=== PATIENT | female | born 1985 | race Two or more races ===

== ENCOUNTER → 2017-08-03 | Outpatient (CLI) | payer OTHER | END | disposition home or self-care (01) | LOC: US 08:04 | DX: N63.20 Unspecified lump in the left breast, unspecified quadrant (principal) | CPT/HCPCS: 19081; 76942; 77065; 88305; 88361; C1713 ==

== ENCOUNTER 2017-10-12 06:33 | Day surgery (SDC) | payer OTHER ==
[~2017-10-12 06:33] MED LIST: NEOMY/BACITR/POLYMYXIN OINT PACKET. TP
[2017-10-12 06:52] LABS: NEG OBC UR NEG; POS OBC UR POS; U PREG PATIENT NEGATIVE (NEG)
[2017-10-12] MEDS ORDERED: PROCHLORPERAZINE 10 MG/2 ML VIAL. IV (07:00)
[2017-10-12] MEDS ORDERED: LIDOCAINE 1% PF 2 ML VIAL. ID (07:00)
[2017-10-12] MEDS ORDERED: ONDANSETRON PF 4 MG/2 ML VIAL. IV (07:00)
[2017-10-12] MEDS ORDERED: MORPHINE SULFATE 2 MG/ML DISP.SYRIN. IV (07:00)
[2017-10-12] MEDS ORDERED: fentaNYL PF VIAL 100 MCG/2 ML VIAL IV (07:00)
[2017-10-12] MEDS: IV RINGERS,LACTATED 1000ML 1,000 ML IV (07:10)
[2017-10-12] MEDS ORDERED: MIDAZOLAM HCL/PF 2 MG/2 ML VIAL. (07:53)
[2017-10-12] MEDS ORDERED: ceFAZolin 2GM PREMIX 2 GM/50 ML BAG IV (08:00)
[2017-10-12] MEDS ORDERED: fentaNYL PF VIAL 100 MCG/2 ML VIAL (08:03)
[2017-10-12] MEDS: BUPIVACAINE 0.5% 50 ML VIAL. (08:05)
[2017-10-12] MEDS: BUPIVAC MPF-EPI 0.5%-1:200000 30 ML VIAL. INJ (08:05)
[2017-10-12] MEDS: HEPARIN SODIUM 5,000 UNIT in IV NORMAL SALINE 500ML BAG 500 ML IRR (08:05)
[2017-10-12] MEDS ORDERED: LIDOCAINE 2% PF Vial for OR 5 ML VIAL. (08:11)
[2017-10-12] MEDS ORDERED: PHENYLEPHRINE in 0.9% NACL PF 1 MG/10 ML SYRINGE. IV (08:11)
[2017-10-12] MEDS ORDERED: PROPOFOL 20 ML IV (08:11)
[2017-10-12] MEDS: fentaNYL PF VIAL 100 MCG/2 ML VIAL IV ×2 (09:03→09:19)
[2017-10-12] MEDS: oxyCODONE/APAP 5/325 1 TAB TABLET PO (10:14)
== END 2017-10-12 10:53 | disposition home or self-care (01) ==
LOC: SURG 06:33
DX: C50.912 Malignant neoplasm of unspecified site of left female breast (principal)
CPT/HCPCS: 36556; 36561; 71045; 81025; A7015; C1788; J0690; J1644; J2250; J2370; J2704; J3010; J3490; J7040; J7120

== ENCOUNTER → 2017-10-19 | Outpatient (CLI) | payer OTHER ==
[~2017-10-19] MED LIST changes: -NEOMY/BACITR/POLYMYXIN OINT PACKET. TP; +POTASSIUM CL 20MEQ-0.45% NACL 1,000 ML IV; +fentaNYL PF VIAL 100 MCG/2 ML VIAL IV
== END | disposition home or self-care (01) ==
LOC: RAD 11:06
DX: Z45.2 Encounter for adjustment and management of vascular access device (principal); J93.9 Pneumothorax, unspecified; Z98.890 Other specified postprocedural states; Z85.3 Personal history of malignant neoplasm of breast
CPT/HCPCS: 71046

== ENCOUNTER → 2017-10-26 | Outpatient (CLI) | payer OTHER | END | disposition home or self-care (01) | LOC: RAD 09:25 | DX: J93.83 Other pneumothorax (principal); Z46.82 Encounter for fitting and adjustment of non-vascular catheter | CPT/HCPCS: 71046 ==